=== PATIENT | male | born 1980 | race Caucasian/White ===

== ENCOUNTER 2019-08-29 07:44 | Outpatient (RCR) | payer OTHER, SELFPAY ==
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
== END 2019-09-19 09:51 | disposition home or self-care (01) ==
LOC: CHSPT 07:44
PROVIDERS: PCP Family Medicine
DX: M54.5 Low back pain (principal)
CPT/HCPCS: 97014; 97110; 97140; 97161; G0283

== ENCOUNTER 2019-09-27 11:11 | Emergency (ER) | payer OTHER, SELFPAY ==
[2019-09-27 11:15] VITALS: BP 137/78; PULSE 106; RESP 18; TEMP 36.9; O2SAT 97
--- NOTE | 2019-09-27 12:19 | ED.WOUNDLAC ---
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 Onset (ago): hour(s) Extremity Location: Left: lower leg ( 3Mm laceration to the lateral aspect of his left lower extremity) Place: home Patient tetanus UTD: Yes Context: accidental Associated symptoms: none Treatments prior to arrival: bandage Related Data Home Medications Medication Instructions Recorded Confirmed amitriptyline 25 mg PO HS 09/27/19 09/27/19 divalproex 2,000 mg PO BID 09/27/19 09/27/19 gabapentin 400 mg PO TID 09/27/19 09/27/19 lacosamide [Vimpat] 100 mg PO BID 09/27/19 09/27/19 lamotrigine 100 mg PO BID 09/27/19 09/27/19 meloxicam 7.5 mg PO DAILY 09/27/19 09/27/19 pravastatin 80 mg PO DAILY 09/27/19 09/27/19 Allergies Allergy/AdvReac Type Severity Reaction Status Date / Time No Known Allergies Allergy Verified 09/27/19 11:35 Review of Systems Review of Systems: All systems reviewed & are unremarkable except as noted in HPI and below PMFSH Past Medical History Medical History Hypercholesterolemia Seizure disorder Exam Const: General: no acute distress Orientation/consciousness: patient oriented x3 HENMT: Head: normal to inspection Eyes: Conjunctivae: conjunctivae normal Pupils: Equal, round and reactive pupils present Neck: Neck: normal visual inspection and no lymphadenopathy Chest: Chest palpation & inspection: normal inspection of the chest Resp: Effort & Inspection: normal respiratory effort Cardio: Rate: regular rate Rhythm: regular rhythm GI: GI Palp: Yes Soft to palpation Back/Spine/Pelvis: Back: no CVA tenderness Skin: General skin exam: normal color Rashes: no rashes Neuro: General: patient oriented x3 Extrem: Other: laceration 3cm gaping to his left lower extremity Psych: Mental Status: mental status grossly normal Course Course Emergency Course: patient informed of needing sutures for laceration in the area was prepped lidocaine local anesthetic was administered 5 sutures were placed patient did well with minimal bleeding and no current bleeding. Procedures Laceration Laceration 1: Date: 09/27/19 Time: 12:29 Site: lower extremity Side (If applicable): left Size (cm): 3 Description: linear Local Anesthetic: lidocaine 1% ====== Skin Level ====== ====== Subcutaneous Layer ====== Size: 4-0 Number of sutures: 5 Technique: simple, interrupted ====== Muscle Layer ====== ====== Tendon Layer ====== Critical Care Time Critical Care Time Critical Care Time: No Discharge Plan Discharge Clinical Impression: Laceration Patient Disposition: Home, Self-Care Condition: Stable Instructions: Antibiotic Form, Laceration (ED) Additional Instructions: Follow-up with primary care physician in 1 week for suture removal. Prescriptions: No Action gabapentin 400 mg capsule 400 mg PO TID RF: 0 meloxicam 7.5 mg tablet 7.5 mg PO DAILY RF: 0 pravastatin 80 mg tablet 80 mg PO DAILY RF: 0 amitriptyline 25 mg tablet 25 mg PO HS RF: 0 divalproex 500 mg tablet extended release 24 hr 2,000 mg PO BID RF: 0 lamotrigine 100 mg tablet 100 mg PO BID RF: 0 Vimpat 100 mg tablet 100 mg PO BID RF: 0 Interventions: Discharge Disposition Last Done: 09/27/19 12:30 Follow-up/Referrals: Tari Lane [Other] Time of Disposition: 12:32
== END 2019-09-27 12:36 | disposition home or self-care (01) ==
PROVIDERS: Emergency Provider Emergency Medicine
DX: S81.812A Laceration without foreign body, left lower leg, initial encounter (principal); W45.8XXA Other foreign body or object entering through skin, initial encounter
CPT/HCPCS: 12002; 99282

== ENCOUNTER 2020-10-13 08:49 | Outpatient (RCR) | payer OTHER, SELFPAY ==
--- NOTE | 2020-10-13 09:57 | PTOPEVAL ---
Thank you for referring Luis Voss to [facility] The patient is scheduled to be seen for therapy? __3__x/week for 12 visits. Please review, sign, date and return this plan of care [facility]. I agree with and certify that the following plan of care is medically necessary. Referring Physician Date Admitting Provider: Attending Provider: Judith Trinh, GRINDER GEAR Referring Provider: *PT Outpatient Evaluation Start: 10/13/20 09:02 Freq: Status: Active Protocol: Document 10/13/20 09:02 VIJAYA (Rec: 10/13/20 09:56 [facility] [id number]) Therapy Assessment Status Assessment Status Assessment Status Evaluation Outpatient Past Medical History Neurological History Hx Epilepsy Yes Hx Seizures Yes Musculoskeletal History Hx Other Musculoskeletal Disorders Yes: larry carpal tunnel, left ulnar and radial nerve surgery Evaluation Information Problem Diagnosis left calcaneus fx, scapular dyskinesis Onset 08/07/20 Subjective Information Pt. reports that he was Query Text:As Reported By Patient/ climbing down a ladder and Family slipped falling straight down. He reports he went to the doctor that evening and revealed heel fx. He states that he was placed in a boot and was on crutches initially. He has been off crutches for 4 weeks. He reports that he is still in a boot and was told he will have to wear the boot till December. 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 He states that he also suffers from chronic pain in the neck and described right shoulder blade. He states that pain is triggered with raising the arm and turning the head. He states that his goal is to walk normal and decrease his shoulder pain. 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
== END 2020-11-06 08:46 | disposition home or self-care (01) ==
LOC: CHSPT 08:49
PROVIDERS: Visit Provider Nurse Practitioner Family
DX: S92.045D Nondisplaced other fracture of tuberosity of left calcaneus, subsequent encounter for fracture with routine healing (principal); G25.89 Other specified extrapyramidal and movement disorders
CPT/HCPCS: 97014; 97110; 97112; 97161; G0283

== ENCOUNTER 2021-01-27 08:54 | Outpatient (RCR) | payer OTHER, SELFPAY ==
--- NOTE | 2021-01-27 09:56 | PTOPEVAL ---
Thank you for referring Luis Voss to [facility].? The patient is scheduled to be seen for therapy? ____x/week for ___ weeks. Please review, sign, date and return this plan of care [facility]. I agree with and certify that the following plan of care is medically necessary. Referring Physician Date Admitting Provider: Attending Provider: Judith Trinh, ENTRY LEVEL SOFTWARE ENGINEER Referring Provider: *PT Outpatient Evaluation Start: 01/27/21 09:02 Freq: Status: Active Protocol: Document 01/27/21 09:00 [facility] (Rec: 01/27/21 09:50 [facility] [id number]) Therapy Assessment Status Assessment Status Assessment Status Evaluation Outpatient Past Medical History Neurological History Hx Epilepsy Yes Hx Seizures Yes Musculoskeletal History Hx Other Musculoskeletal Disorders Yes: larry carpal tunnel, left ulnar and radial nerve surgery Evaluation Information Problem Diagnosis R shoulder SLAP repair and biceps tenodesis Onset 12/11/20 Additional Evaluation Detail quick dash = 72% functionally declined Subjective Information patient reports he injured his Query Text:As Reported By Patient/ R shoulder many years ago. he Family is unsure of an actual injury . he reports about 6-7 weeks ago he had a SLAP repair of the R shoulder (12/11/20). he reports he was in a sling for only 3 days, and is now able to lift 5lbs. he reports he has not been doing any home therapy, but has been stretching his shoulder. he reports he is now able to lift his R arm overhead which he was unable to do before. as well, he can now reach behind his back and head which were limited due to pain before surgery. he reports he still has discomfort/pain in the R shoulder with overhead lifting and behind head/back reaching . Prior Level of Function Comments Additional Prior Level of Function patient reports he does not Comments work. he reports he is wanting to return to pain free movement of the R shoulder, and well as performing light
--- NOTE | 2021-02-13 16:08 | PTOPEVAL ---
Thank you for referring Luis Voss to [facility].? The patient is scheduled to be seen for therapy? ____x/week for ___ weeks. Please review, sign, date and return this plan of care [facility]. I agree with and certify that the following plan of care is medically necessary. Referring Physician Date Admitting Provider: Attending Provider: Judith Trinh, BEAUTY OPERATOR APPRENTICE Referring Provider: *PT Outpatient Evaluation Start: 01/27/21 09:02 Freq: Status: Active Protocol: Document 02/13/21 07:30 [facility] (Rec: 02/13/21 08:27 [facility] [id number]) Therapy Assessment Status Assessment Status Assessment Status Progress Outpatient Past Medical History Neurological History Hx Epilepsy Yes Hx Seizures Yes Musculoskeletal History Hx Other Musculoskeletal Disorders Yes: larry carpal tunnel, left ulnar and radial nerve surgery Evaluation Information Problem Diagnosis R shoulder SLAP repair and biceps tenodesis Onset 12/11/20 Subjective Information patient reports he feels Good Query Text:As Reported By Patient/ this date. he reports Family minimal pain this date. he reports he has been compliant with his HEP at home. Pain Assessment Timing of Pain Assessment Timing of Pain Assessment Assessment Pain Scale Pain Scale Used Numeric (1 - 10) Self Report Pain Assessment Right Shoulder(s) Reported Pain Level 1 Pain Score Pain Score 1: Self Report Interventions Used Interventions Used By Clinicians Activity or ADL's,Electrical Stimulation,Exercise,Heat Upper Extremity Range of Motion Scapular/ Shoulder Range of Motion Right Shoulder Flexion - Active 165 Shoulder Medial Rotation - Active 65 Shoulder Lateral Rotation - Active 90 Upper Extremity Muscle Strength Testing Scapular/Shoulder Right Shoulder Flexion Strength 4 Good Shoulder Adduction Strength 4 Good Shoulder Medial Rotation Strength 5 Normal Shoulder Lateral Rotation Strength 4+ Good + General Exercise General Exercises Exercise Description -pulleys 5 minutes Query Text:Record Sets, Reps, -TB blue scap retraction x 30 Resistance, and Position -TB blue x 30 scap retraction -TB blue shoulder IR x 30 -TB blue shoulder ER x 30 with towel roll under arm -standing flexion and scaption x20 with 3lb bilat -bent over row 3lb x30 bilat -prone shoulder flexion 2# x 15 reeps x 2 sets
--- NOTE | 2021-02-18 08:23 | PCPTNOTE ---
Mr Voss has been seen for a total of 11 outpatient treatments since initial evaluation on 01/27/21. Patient rates his pain a 3/10 and is following 5# weight restriction in department per physicians protocol. Patient feels he has improved 75% since initial eval. Mr. Voss's treatment has consisted of: -pulleys 5 minutes -TB blue scap retraction x 30 -TB blue x 30 scap retraction -TB blue shoulder IR x 30 -TB blue shoulder ER x 30 -standing flexion and scaption x30 reps with 3lb bilat -bent over row 5lb x30 bilat -prone shoulder flexion 2# x 30 reeps. -prone right shoulder horizontal abduction x 30 reps with 2# -prone shoulder extension x 30 reps 2# -prone row 15 reps x2 stes with 2# -body blade 1 minute each x 2 flex/ext and IR/ER -supine scap punch with 5lb weight x20 -supine 5lb alphabet -TB wall walking blue 20 feet x 2 -TB wall wall climbs up and down x10 blue loop -tband red D@ flex and ext x20 each -ball on shelf 2.2# forward x 20 -ball on shelf 2.2# at scaption angle with elbow slightly bent x 20 -UBE x 4 min L3 Right shoulder AROM: Flexion 165 degrees Internal Rotation 65 degrees External Rotation 90 degrees MMT: Flexion 4+/5 Internal Rotation 5/5 External Rotation 4+/5 If you have any questions or concerns in regards to Arjun's treatment feel free to contact our office. Noa Eisenberg [employer]IGH [employer]CHO[employer] AUTO REPAIR TEACHER
--- NOTE | 2021-02-20 08:57 | PTOPEVAL ---
Thank you for referring Luis Voss to [facility].? The patient is scheduled to be seen for therapy? ____x/week for ___ weeks. Please review, sign, date and return this plan of care [facility]. I agree with and certify that the following plan of care is medically necessary. Referring Physician Date Admitting Provider: Attending Provider: Judith Trinh, DAM TENDER ASSISTANT Referring Provider: *PT Outpatient Evaluation Start: 01/27/21 09:02 Freq: Status: Active Protocol: Document 02/20/21 07:56 [facility] (Rec: 02/20/21 08:56 [facility] [id number]) Therapy Assessment Status Assessment Status Assessment Status Progress Outpatient Past Medical History Neurological History Hx Epilepsy Yes Hx Seizures Yes Musculoskeletal History Hx Other Musculoskeletal Disorders Yes: larry carpal tunnel, left ulnar and radial nerve surgery Evaluation Information Problem Diagnosis R shoulder SLAP tear and bicep tenodesis Onset 12/11/20 Subjective Information Patient states that he went to Query Text:As Reported By Patient/ the MD the past week and they Family were pleased with his range of motion and would like to progress his strengthening. He no longer has weight restrictions. Pain Assessment Timing of Pain Assessment Timing of Pain Assessment Assessment Pain Scale Pain Scale Used Numeric (1 - 10) Self Report Pain Assessment Right Shoulder(s) Reported Pain Level 1 Greatest Pain Intensity 4 Pain Score Pain Score 1: Self Report Interventions Used Interventions Used By Clinicians Activity or ADL's,Exercise Upper Extremity Muscle Strength Testing Scapular/Shoulder Right Shoulder Flexion Strength 5 Normal Shoulder Abduction Strength 5 Normal Shoulder Medial Rotation Strength 5 Normal Shoulder Lateral Rotation Strength 4+ Good + General Exercise General Exercises Exercise Description -pulleys 5 minutes Query Text:Record Sets, Reps, -TB blue scap retraction x 30 Resistance, and Position -TB blue x 30 scap retraction -TB blue shoulder IR x 30 -TB blue shoulder ER x 30 -standing flexion and scaption x25 with 3lb bilat -bent over row 5lb x30 bilat -prone shoulder flexion 2# x 15 reeps x 2 sets -prone right shoulder horizontal abduction x 15 reps x 2 sets
--- NOTE | 2021-04-07 11:11 | PTOPEVAL ---
Thank you for referring Luis Voss to [facility].? The patient is scheduled to be seen for therapy? ____x/week for ___ weeks. Please review, sign, date and return this plan of care [facility]. I agree with and certify that the following plan of care is medically necessary. Referring Physician Date Admitting Provider: Attending Provider: Judith Trinh, CLINICAL GENETICS LABORATORY CHIEF Referring Provider: *PT Outpatient Evaluation Start: 01/27/21 09:02 Freq: Status: Active Protocol: Document 04/07/21 07:30 [facility] (Rec: 04/07/21 11:10 [facility] [id number]) Therapy Assessment Status Assessment Status Assessment Status Discharge Outpatient Past Medical History Neurological History Hx Epilepsy Yes Hx Seizures Yes Musculoskeletal History Hx Other Musculoskeletal Disorders Yes: larry carpal tunnel, left ulnar and radial nerve surgery Evaluation Information Problem Diagnosis R shoulder SLAP tear and bicep tenodesis Onset 12/11/20 Additional Evaluation Detail quick dash = 22% Subjective Information patient reports he feels good Query Text:As Reported By Patient/ this date. he reports he has Family no pain in the R shoulder. he reports today is his last visit. he reports he is seeing his MD for DC from services tomorrow. Pain Assessment Timing of Pain Assessment Timing of Pain Assessment Assessment Self Report Self Report Pain Level 0 Pain Score Pain Score 0: Self Report Upper Extremity Range of Motion General Upper Extremity Range of Motion Gross Upper Extremity Range of Motion 165 arom bilateral shoulder Comments flex functional ER reach to the upper thoracic spine bilaterally functional IR reach to the lower thoracic spine bilaterally Upper Extremity Muscle Strength Testing Scapular/Shoulder Right Shoulder Flexion Strength 5 Normal Shoulder Abduction Strength 5 Normal Shoulder Medial Rotation Strength 5 Normal Shoulder Lateral Rotation Strength 4+ Good + Elbow/Forearm Right Elbow Flexion Strength 5 Normal Elbow Extension Strength 5 Normal General Exercise General Exercises Exercise Description TherEx Query Text:Record Sets, Reps, -UBE x 10 min L3 Resistance, and Position -TB black scap retraction x 30 -TB black ext x 30 -TB black shoulder IR x 30
== END 2021-04-07 16:21 | disposition home or self-care (01) ==
LOC: CHSPT 08:54
PROVIDERS: Visit Provider Nurse Practitioner Family
DX: S43.431A Superior glenoid labrum lesion of right shoulder, initial encounter (principal); Z48.89 Encounter for other specified surgical aftercare
CPT/HCPCS: 97014; 97110; 97140; 97161; 97530; G0283

== ENCOUNTER 2021-11-06 11:09 | Outpatient (CLI) | payer OTHER, SELFPAY ==
[2021-11-06 11:50] LABS: Post Vasectomy Sperm Presence None Seen (None Seen)
== END 2021-11-06 11:10 | disposition home or self-care (01) ==
LOC: CHSLAB 11:11
PROVIDERS: PCP Family Medicine; Visit Provider Family Medicine
DX: Z30.09 Encounter for other general counseling and advice on contraception (principal)
CPT/HCPCS: 88160; 89321

== ENCOUNTER 2023-04-11 20:28 | Emergency (ER) | payer OTHER, SELFPAY ==
--- NOTE | ~2023-04-11 | XR_ITS ---
EXAMINATION: XR chest 1V portable 04/11/2023 20:59 INDICATION: Cough and fever PROCEDURE: AP portable chest COMPARISON: 01/15/2014 FINDINGS: The lungs are clear. The cardiomediastinal silhouette is within normal limits. There are no pleural effusions. There is no pneumothorax suspected. IMPRESSION: 1: NO ACUTE CARDIOPULMONARY DISEASE. Reviewed, dictated and finalized at location A. NICAL DELIVERY MANAGER
[2023-04-11 20:30] VITALS: BP 103/71; PULSE 68; RESP 20; TEMP 36.9; O2SAT 95
[2023-04-11 21:09] LABS: Strep Group A RT-PCR NOT DETECTED (Negative)
--- NOTE | 2023-04-11 21:13 | ED.GENADULT ---
HPI - General Adult General Chief complaint: Upper Respiratory Infection Stated complaint: fever, cough, body aches History of Present Illness HPI narrative: Luis presented to the ED feeling ill for a day and a half. He started to feel weak and had some aches which progressed to diarrhea, a cough, and a fever up to 102. There is no CP or dyspnea. His has flu B. Related Data Home Medications Medication Instructions Recorded Confirmed amitriptyline 25 mg tablet 25 mg PO HS 09/27/19 09/27/19 divalproex 500 mg tablet,extended 2,000 mg PO BID 09/27/19 09/27/19 release 24 hr gabapentin 400 mg capsule 400 mg PO TID 09/27/19 09/27/19 lacosamide 100 mg tablet (Vimpat) 100 mg PO BID 09/27/19 09/27/19 lamotrigine 100 mg tablet 100 mg PO BID 09/27/19 09/27/19 meloxicam 7.5 mg tablet 7.5 mg PO DAILY 09/27/19 09/27/19 pravastatin 80 mg tablet 80 mg PO DAILY 09/27/19 09/27/19 Allergies Allergy/AdvReac Type Severity Reaction Status Date / Time No Known Allergies Allergy Verified 09/27/19 11:35 Review of Systems Review of Systems: All systems reviewed & are unremarkable except as noted in HPI and below ON LICENSE OF [facility] Past Medical History Medical History (Updated 04/12/23 @ 00:00 by Background Daemon) Hypercholesterolemia Seizure disorder Exam Const: General: cooperative, healthy appearing, comfortable, no acute distress, well developed, alert, awake and Physically active Orientation/consciousness: oriented to person, oriented to place and oriented to time HENMT: Head: normal to inspection, normocephalic and atraumatic Ears: hearing grossly normal bilaterally and external ears normal Face/Nose/Sinus: Normal external nose present Other: rhinorrhea present Eyes: General: appearance normal, both eyes and all related structures Periorbital: periorbital findings normal Sclera: sclerae normal Pupils: Equal, round and reactive pupils present Neck: Neck: normal visual inspection Chest: Chest palpation & inspection: normal inspection of the chest Resp: Effort & Inspection: normal respiratory effort, able to speak in complete sentences and no respiratory distress Auscultation: clear to auscultation bilaterally Cardio: Jugular venous distension: no JVD Rate: regular rate Rhythm: regular rhythm GI: Inspection: normal to inspection GI Palp: Yes Soft to palpation Auscultation: normal bowel sounds Skin: General skin exam: normal color and no rashes or lesions noted Neuro: General: oriented to person, oriented to place and oriented to time Cranial nerves: Yes Equal, round and reactive pupils present Extrem: General: normal to inspection Course Course Emergency Course: Ordered viral testing, labs and CXR. EXAMINATION: XR chest 1V portable 04/11/2023 20:59 INDICATION: Cough and fever PROCEDURE:? AP portable chest COMPARISON: 01/15/2014 FINDINGS: The lungs are clear.? The cardiomediastinal silhouette is within normal limits.? There are no pleural effusions.? There is no pneumothorax suspected.? IMPRESSION: 1:? NO ACUTE CARDIOPULMONARY DISEASE. +influenza B -CBC was largely unremarkable but CMP showed mild hyponatremia and and elevated creatinine (no baseline to compare but I suspect in an otherwise healthy male it would be lower) Ordered 1L of NS Vital Signs Vital signs: Vital Signs Temperature 98.4 F 04/11/23 20:30 Pulse Rate 68 04/11/23 20:30 Respiratory Rate 20 04/11/23 20:30 Blood Pressure 103/71 04/11/23 20:30 Pulse Oximetry 95 04/11/23 20:30 Oxygen Delivery Room Air 04/11/23 20:30 Temperature 98.3 F 04/11/23 22:46 Pulse Rate 78 04/11/23 22:46 Respiratory Rate 20 04/11/23 22:46 Blood Pressure 148/97 H 04/11/23 22:46 Pulse Oximetry 99 04/11/23 22:46 Oxygen Delivery Room Air 04/11/23 22:46 Medical Decision Making Vital Signs Vital Signs: Vital Signs Temperature 98.4 F 04/11/23 20:30 Pulse Rate 68 04/11/23 20:30 Respiratory Rate
[2023-04-11 21:19] LABS: SARS-CoV-2 RNA PCR Negative (Negative)
[2023-04-11 21:25] LABS: Influenza A QL RT-PCR Negative (Negative); Influenza B QL RT-PCR Positive (Negative); RSV RNA, RT-PCR Negative (Negative)
[2023-04-11 21:40] LABS: Basophils Absolute Auto 0.03 K/mm3 (0.00-0.10); Basophils Percent Auto 0.5 % (0.0-1.0); Eosinophils Absolute Auto 0.05 K/mm3 (0.02-0.50); Eosinophils Percent Auto 0.9 % (1.0-6.0); Hematocrit 45.1 % (40.0-54.0); Hemoglobin 14.7 g/dL (14.0-18.0); Immature Granulocyte Absolute 0.02 K/mm3 (0.00-0.00); Immature Granulocyte Percent A 0.4 % (0.0-0.0); Lymphocytes Absolute Auto 0.62 K/mm3 (1.10-4.50); Lymphocytes Percent Auto 10.9 % (18.0-42.0); Mean Corpuscular HGB Conc 32.6 g/dL (32.0-36.0); Mean Corpuscular Hemoglobin 31.4 pg (27.0-31.0); Mean Corpuscular Volume 96.4 fL (78.0-102.0); Mean Platelet Volume 9.9 fl (8.7-11.0); Monocytes Absolute Auto 0.39 K/mm3 (0.10-0.90); Monocytes Percent Auto 6.9 % (2.0-11.0); Neutrophils Absolute Auto 4.6 K/mm3 (1.7-7.2); Neutrophils Percent Auto 80.4 % (50.0-70.0); Platelet Count Result 172 K/mm3 (150-420); Red Blood Count 4.68 M/mm3 (4.70-6.10); Red Cell Distribution Width 14.6 % (11.6-14.4); White Blood Count 5.7 K/mm3 (4.8-10.8)
[2023-04-11] MEDS: OSELTAMIVIR PHOSPHATE 75 MG CAPSULE PO (21:50)
[2023-04-11 21:55] LABS: Alanine Aminotransferase 46 U/L (16-63); Albumin Level 4.2 g/dL (3.4-5.0); Alkaline Phosphatase 75 U/L (46-116); Anion Gap 8 mmol/L (8-16); Aspartate Amino Transferase 29 U/L (15-37); Bilirubin,Total 0.5 mg/dL (0.00-1.00); Blood Urea Nitrogen 13 mg/dL (7-18); Calcium 9.6 mg/dL (8.5-10.1); Carbon Dioxide 28 mmol/L (21-32); Chloride 97 mmol/L (98-108); Estimated CRCL calculation 47 ml/min; Estimated Glomerular Filt Rate 42; Glucose 102 mg/dL (70-99); Osmolality Calculated 276 mOsm/kg (285-295); Potassium 3.8 mmol/L (3.5-5.1); Sodium 133 mmol/L (136-145); Total Protein 7.1 g/dL (6.4-8.2)
[2023-04-11] MEDS: SODIUM CHLORIDE 0.9% IV 1,000 ML 999 ML IV CONT (22:12)
[2023-04-11 22:46] VITALS: BP 148/97; PULSE 78; RESP 20; TEMP 36.8; O2SAT 99
== END 2023-04-11 22:51 | disposition home or self-care (01) ==
PROVIDERS: Emergency Provider Family Medicine; PCP Family Medicine
DX: J10.1 Influenza due to other identified influenza virus with other respiratory manifestations (principal); N17.9 Acute kidney failure, unspecified; Z20.822 Contact with and (suspected) exposure to COVID-19
CPT/HCPCS: 36415; 71045; 80053; 85025; 87637; 87651; 96360; 99283; A9270; J7030

== ENCOUNTER 2023-07-08 09:20 | Emergency (ER) | payer OTHER, SELFPAY ==
--- NOTE | ~2023-07-08 | US_ITS ---
Testicular ultrasound with doppler. Indication: Right testicular pain and swelling. Technique: Real-time sonography the scrotum was performed. Color flow Doppler and Doppler spectral an alysis were performed. Findings: The testes are homogeneous in echotexture bilaterally. There is no evidence of an intrates ticular mass. The right testis measures 3.6 x 2.5 x 2.0 cm and the left 3.9 x 2.5 x 2.1 cm. There is color-flow seen to both testes. Arterial and venous spectral waveforms are seen in both testes. There is no sonographic evidence of torsion. 6 mm right epididymal head cyst or spermatocele present. Ther e is a 3 mm calcification adjacent to the inferior aspect of the epididymis on the right side, possib ly a small scrotal juliane. Impression: No acute reality evident. 6 mm right epidural head cyst or spermatocele. Probable 3 mm right scrotal juliane.. Reviewed, dictated and finalized at [facility]. Impression: No acute reality evident. 6 mm right epidural head cyst or spermatocele. Probable 3 mm right scrotal juliane..
[2023-07-08 09:20] VITALS: BP 120/81; PULSE 65; RESP 16; TEMP 36.6; O2SAT 100
[2023-07-08 09:46] LABS: Appearance Urine Clear (Clear); Bilirubin Urine Negative (Negative); Blood Urine Negative (Negative); Color Urine Yellow (Yellow); Glucose Urine UA Negative (Negative); Ketones Urine Negative (Negative); Leukocyte Esterase Ur Negative LEU/UL (Negative); Nitrate Urine Negative (Negative); Protein Urine Negative (Negative); Specific Grav Ur 1.025 (1.010-1.020); Urobilinogen Urine 0.2 mg/dL (0.2-1.0)
[2023-07-08 09:50] LABS: Add Urine Microscopic? NO
[2023-07-08] MEDS: IBUPROFEN 400 MG TABLET 800 MG PO (11:19)
[2023-07-08] MEDS: ACETAMINOPHEN 500 MG TABLET 1000 MG PO (11:19)
[2023-07-08] MEDS: CIPROFLOXACIN 500 MG TAB PO (11:19)
[2023-07-08 11:22] VITALS: BP 123/79; PULSE 79; RESP 20; TEMP 36.9; O2SAT 98
--- NOTE | 2023-07-08 11:29 | ED.GENADULT ---
HPI - General Adult General Chief complaint: Urogenital-Male Stated complaint: right testicular pain Time Seen by Provider: 07/08/23 09:36 History of Present Illness HPI narrative: The patient is a 43-year-old male with history of seizure disorder, hyperlipidemia, fibromyalgia, bipolar affective disorder, prior vasectomy, who since yesterday evening, has had pain in the right testicle. No trauma to that area. No lesions on the penis or drainage from the meatus. No significant swelling of the testicle today, no symptoms on the left side. Has had mild increase in urinary frequency but no urinary urgency dysuria or hematuria. No fevers or chills. No abdominal pain. No nausea or vomiting. No other complaints. Related Data Home Medications Medication Instructions Recorded Confirmed amitriptyline 25 mg tablet 25 mg PO HS 09/27/19 09/27/19 divalproex 500 mg tablet,extended 2,000 mg PO BID 09/27/19 09/27/19 release 24 hr gabapentin 400 mg capsule 400 mg PO TID 09/27/19 09/27/19 lacosamide 100 mg tablet (Vimpat) 100 mg PO BID 09/27/19 09/27/19 lamotrigine 100 mg tablet 100 mg PO BID 09/27/19 09/27/19 meloxicam 7.5 mg tablet 7.5 mg PO DAILY 09/27/19 09/27/19 pravastatin 80 mg tablet 80 mg PO DAILY 09/27/19 09/27/19 Allergies Allergy/AdvReac Type Severity Reaction Status Date / Time No Known Allergies Allergy Verified 09/27/19 11:35 Review of Systems Review of Systems: All systems reviewed & are unremarkable except as noted in HPI and below Constitutional: Constitutional: Denies chills, Denies excessive sweating, Denies fatigue, Denies fever(s), Denies headache(s) and Denies weakness Eyes: Eyes: Denies change in vision and Denies photophobia ENT: Denies dysphagia, Denies dizziness, Denies headache(s), Denies lip swelling, Denies nasal congestion, Denies sore throat and Denies tongue swelling Cardiovascular: Cardiovascular: Denies chest pain, Denies syncope, Denies rapid heart rate and Denies dyspnea Respiratory: Respiratory: Denies cough, Denies dyspnea and Denies wheezing Gastrointestinal: Gastrointestinal: Denies abdominal pain, Denies constipation, Denies dysphagia, Denies diarrhea, Denies nausea and Denies vomiting Genitourinary: Genitourinary: Denies hematuria, Denies dysuria, Reports urinary frequency (mild) and Denies urinary urgency Comments: right testicular pain without swelling. Musculoskeletal: Musculoskeletal: Denies back pain, Denies myalgias, Denies arthralgias, Denies joint swelling and Denies numbness Integumentary/Breasts: Skin/Breast: Denies pruritus, Denies erythema and Denies rash Neurologic: Denies confusion, Denies dizziness, Denies syncope, Denies headache(s), Denies focal weakness, Denies numbness and Denies weakness Psychiatric: Psychiatric: Denies anxiety and Denies confusion Endocrine: Endocrine: Denies excessive sweating and Denies fatigue Hematologic/Lymphatic: Hematologic/Lymphatic: Denies easy bleeding and Denies easy bruising Allergic/Immunologic: Allergic/Immunologic: Denies lip swelling, Denies tongue swelling and Denies wheezing PMFSH Past Medical History Medical History (Updated 07/08/23 @ 11:36 by Vj Rajput MD) Hypercholesterolemia Seizure disorder Exam Const: General: healthy appearing, no acute distress, alert and well nourished Nutritional Appearance: well nourished Orientation/consciousness: patient oriented x3 Limitations: no limitations HENMT: Head: normal to inspection Ears: external ears normal Face/Nose/Sinus: normal facial exam Face and sinus: normal facial exam Mouth: Yes moist mucous membranes Throat: posterior oropharynx normal Eyes: Conjunctivae: conjunctivae normal Pupils: Equal, round and reactive pupils present EOM: EOMs intact bilaterally Neck: Neck: normal visual inspection and no meningeal signs Chest: Chest palpation & inspection: normal inspection of the chest and no tenderness Resp: Effort & Inspection: normal resp
[2023-07-08 11:56] VITALS: BP 123/79; PULSE 79; RESP 20; TEMP 36.9; O2SAT 98
== END 2023-07-08 11:56 | disposition home or self-care (01) ==
PROVIDERS: Emergency Provider Emergency Medicine; PCP Family Medicine
DX: N45.1 Epididymitis (principal); E78.5 Hyperlipidemia, unspecified; F31.9 Bipolar disorder, unspecified; G40.909 Epilepsy, unspecified, not intractable, without status epilepticus; E78.00 Pure hypercholesterolemia, unspecified
CPT/HCPCS: 76870; 81003; 93976; 99284; A9270

== ENCOUNTER 2024-07-25 08:04 | Outpatient (RCR) | payer OTHER, SELFPAY ==
--- NOTE | 2024-07-25 08:57 | OPREHPOC ---
Outpatient Therapy Plan of Care This is a Multidisciplinary Plan of Care that may contain components documented by all disciplines (PT, OT, and ST.) PT Problem 1 PT Problem #1 Knowledge Deficit PT Goal 1 Goal / Goal Update independent and compliant with HEP Target Visit 6 PT Problem 2 PT Problem #2 Pain PT Goal 1 Goal / Goal Update decrease pain at worst to 4/10 or less in the R shoulder Target Visit 12 PT Problem 3 PT Problem #3 Impaired Range of Motion PT Goal 1 Goal / Goal Update 145 degrees or better active R shoulder flex 135 degrees or better active R shoulder abd 85 degrees or better active R shoulder ER 75 degrees or better active R shoulder IR Target Visit 12 PT Problem 4 PT Problem #4 Impaired Strength PT Goal 1 Goal / Goal Update 4+/5 or better overall R shoulder strength 5/5 R elbow extension Target Visit 12 PT Problem 5 PT Problem #5 Impaired Functional Mobility PT Goal 1 Goal / Goal Update quick dash to display 25% or less functional deficits patient to lift 40lbs from floor to waist without increased pain patient to carry 40lbs around 400ft without increased pain patient to lift 10lbs overhead x10 repetitions with the R UE Target Visit 12
--- NOTE | 2024-07-25 08:58 | PTOPEVAL1 ---
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 he reports he has increased pain in the R shoulder with reaching overhead, doing dishes, lifting heavy objects (40lbs). he reports he struggles to carry a ladder or bundles of eloise material. he reports he has not yet had an MRI of the R shoulder since his pain began. he does have a history of R shoulder surgery (biceps tear, SLAP tear, DCE) back in 2019. he recovered fully after rehab from that surgery. Reported Pain Level Pain Score 5: Self Report Assessment PT Clinical Summary mr. galvin is a 44 yo man who presents to skilled PT services for evaluation and treatment of R shoulder pain. he has a history of labral tear and biceps tear of the R shoulder several years ago. he now presents with a angelica sign and other signs and symptoms that indicate a tear of the biceps and labrum. he would benefit from continued skilled PT to improve his rom, strength, and functional use of the R UE to return to his prior level functional activity performance/ quality of life. patient would benefit from having an MRI of the R shoulder to determine the extent of soft tissue damage. Plan of Care Interventions Electrical Stimulation,Hot Pack/Cold Pack,Manual Therapy,Neuro Re-education,Patient/Caregiver Education,Therapeutic Activities,Therapeutic Exercise PT Services Indicated Yes Treatment Frequency and 3x weekly for 12 visits Duration These treatments will address the objective and functional deficits as defined above. The patient will be advanced safely and appropriately in order for the patient to progress towards his/her prior level of function. Additional exercises will be introduced and as well as a comprehensive home exercise program upon discharge, if needed, to ensure carryover of functional gains achieved in the clinic. This treatment plan has been reviewed and agreement upon by the patient.
--- NOTE | 2024-08-01 08:11 | PCPTNOTE ---
Cancelled session. Father in law .
--- NOTE | 2024-08-17 12:27 | OPREHPOC ---
Outpatient Therapy Plan of Care This is a Multidisciplinary Plan of Care that may contain components documented by all disciplines (PT, OT, and ST.) PT Problem 1 PT Problem #1 Knowledge Deficit PT Goal 1 Goal / Goal Update independent and compliant with HEP Target Visit 6 Progress Met PT Problem 2 PT Problem #2 Pain PT Goal 1 Goal / Goal Update decrease pain at worst to 4/10 or less in the R shoulder Target Visit 12 Progress Not Met PT Problem 3 PT Problem #3 Impaired Range of Motion PT Goal 1 Goal / Goal Update 145 degrees or better active R shoulder flex 135 degrees or better active R shoulder abd 85 degrees or better active R shoulder ER 75 degrees or better active R shoulder IR Target Visit 12 Progress Not Met PT Problem 4 PT Problem #4 Impaired Strength PT Goal 1 Goal / Goal Update 4+/5 or better overall R shoulder strength 5/5 R elbow extension Target Visit 12 Progress Not Met PT Problem 5 PT Problem #5 Impaired Functional Mobility PT Goal 1 Goal / Goal Update quick dash to display 25% or less functional deficits patient to lift 40lbs from floor to waist without increased pain patient to carry 40lbs around 400ft without increased pain patient to lift 10lbs overhead x10 repetitions with the R UE Target Visit 12 Progress Not Met
--- NOTE | 2024-08-17 12:27 | PTOPPROG ---
Assessment and note entered by Rhonda Srinivasan, PT Evaluation Information Assessment Status Progress ICD-10 Condition Codes (PT) Pain in right shoulder M25.511 Subjective Information Luis reports his shoulder pain is around a 3/10 today and continues to be sharp in nature. Overall he feels like his shoulder is the same as when he started PT. He was scheduled to get an MRI on the shoulder on 08/14/24 but it was cancelled because they want to wait until he finishes physical therapy. Luis reports pain still occurs when getting dressed and washing his hair and that his pain significantly impairs his ability to perform these tasks. Assessment PT Clinical Summary Mr. Voss has attended 10 total skilled PT visits addressing R shoulder pain. Since beginning physical therapy his R shoulder strength and AROM are unchanged and his reported Quick DASH score is also unchanged. He continues to experience pain at rest and with activities such as getting dressed and washing his hair. He will benefit from continued skilled PT intervention for the remainder of his POC to reduce pain and, following discharge from PT, would benefit from further imaging of the R shoulder to investigate pathologies. Plan of Care Interventions Electrical Stimulation,Hot Pack/Cold Pack,Manual Therapy,Neuro Re-education,Patient/Caregiver Education,Therapeutic Activities,Therapeutic Exercise PT Services Indicated No Treatment Frequency and Continue per original POC Duration These treatments will address the objective and functional deficits as defined above. The patient will be advanced safely and appropriately in order for the patient to progress towards his/her prior level of function. Additional exercises will be introduced and as well as a comprehensive home exercise program upon discharge, if needed, to ensure carryover of functional gains achieved in the clinic. This treatment plan has been reviewed and agreement upon by the patient.
--- NOTE | 2024-08-23 08:10 | OPREHPOC ---
Outpatient Therapy Plan of Care This is a Multidisciplinary Plan of Care that may contain components documented by all disciplines (PT, OT, and ST.) PT Problem 1 PT Problem #1 Knowledge Deficit PT Goal 1 Goal / Goal Update independent and compliant with HEP Target Visit 6 Progress Met PT Problem 2 PT Problem #2 Pain PT Goal 1 Goal / Goal Update decrease pain at worst to 4/10 or less in the R shoulder -not met Target Visit 12 Progress Not Met PT Problem 3 PT Problem #3 Impaired Range of Motion PT Goal 1 Goal / Goal Update 145 degrees or better active R shoulder flex -not met 135 degrees or better active R shoulder abd -not met 85 degrees or better active R shoulder ER -not met 75 degrees or better active R shoulder IR -not met Target Visit 12 Progress Not Met PT Problem 4 PT Problem #4 Impaired Strength PT Goal 1 Goal / Goal Update 4+/5 or better overall R shoulder strength -not met 5/5 R elbow extension -met Target Visit 12 Progress Not Met PT Problem 5 PT Problem #5 Impaired Functional Mobility PT Goal 1 Goal / Goal Update quick dash to display 25% or less functional deficits -not met patient to lift 40lbs from floor to waist without increased pain. -not assessed patient to carry 40lbs around 400ft without increased pain -not assessed patient to lift 10lbs overhead x10 repetitions with the R UE -not met Target Visit 12 Progress Not Met
--- NOTE | 2024-08-23 08:10 | PTOPDC ---
Assessment and note entered by Ginny Kern, PT Evaluation Information Assessment Status Evaluation ICD-10 Condition Codes (PT) Pain in right shoulder M25.511 Subjective Information Luis reports his right shoulder pain is unchanged overall. He will be having a MRI after her completes his PT and he thinks he will need shoulder surgery. He has difficulty and increased pain with reaching overhead, to the side, and behind his back. 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 He will be following up with his physician regarding ongoing limitations and pain. Reported Pain Level Pain Score 3: Self Report Assessment PT Clinical Summary Arjun Voss has completed 12 skilled PT visits for right shoulder pain. He is reporting no overall change in his pain, symptoms, or function since initiating PT. He continues to have pain and difficulty with reaching overhead, to the side , and behind the back. 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 He continues to have objective deficits in right shoulder AROM, right shoulder strength, and positive special tests consistent with rotator cuff pathology, bicep tendonitis, and impingement. He has met one goal for independence in a home exercise program however, remainder of goals were not met. He is being discharged from skilled PT and was referred back to his physician. Plan of Care PT Services Indicated No
--- NOTE | 2024-08-23 08:11 | PTOPDC ---
Assessment and note entered by Ginny Kern, PT Evaluation Information Assessment Status Discharge ICD-10 Condition Codes (PT) Pain in right shoulder M25.511 Subjective Information Luis reports his right shoulder pain is unchanged overall. He will be having a MRI after her completes his PT and he thinks he will need shoulder surgery. He has difficulty and increased pain with reaching overhead, to the side, and behind his back. 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 He will be following up with his physician regarding ongoing limitations and pain. Reported Pain Level Pain Score 3: Self Report Assessment PT Clinical Summary Arjun Voss has completed 12 skilled PT visits for right shoulder pain. He is reporting no overall change in his pain, symptoms, or function since initiating PT. He continues to have pain and difficulty with reaching overhead, to the side , and behind the back. 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 He continues to have objective deficits in right shoulder AROM, right shoulder strength, and positive special tests consistent with rotator cuff pathology, bicep tendonitis, and impingement. He has met one goal for independence in a home exercise program however, remainder of goals were not met. He is being discharged from skilled PT and was referred back to his physician. Plan of Care PT Services Indicated No
== END 2024-08-23 20:00 | disposition home or self-care (01) ==
LOC: CHSPT 08:04
PROVIDERS: Visit Provider Nurse Practitioner Family
DX: M75.111 Incomplete rotator cuff tear or rupture of right shoulder, not specified as traumatic (principal); S43.431A Superior glenoid labrum lesion of right shoulder, initial encounter; S46.211S Strain of muscle, fascia and tendon of other parts of biceps, right arm, sequela
CPT/HCPCS: 97014; 97110; 97112; 97161; 97750; G0283

== ENCOUNTER 2024-08-30 08:51 | Emergency (ER) | payer OTHER, SELFPAY ==
--- OUTSIDE RECORDS SUMMARY | 2024-08-30 08:55 | XMS_ITS | Encounter Summary ---
Author Organization [facility] Address [address] [place] [address] Care Team Providers Care Exchange Trouble Shooter Name Role Phone Jm Lane MD Primary Care Provider Tari Lane Primary Care Provider [phone] MD Primary Care Provider [phone] Encounter Details Date Type Department Care Team (Late st Contact Info) Description 10/27/2020 Telephone [facility] [address] [place] [id number] Cuco Lui MD [address] [address] Social History Tobacco Use Types Packs/Day Years Used Date Smoking Tobacco: Every Day Cigars Smokeless Tobacco: Never Comments:Provider to address one cigar a day Alcohol Use Standard Drinks/Week Comments No 0 (1 standard drink = 0.6 oz pur e alcohol) AUDIT-C Answer Date Recorded Frequency of Alcohol Consumption Never 12/04/2018 Average Number of Drinks Not on file 019 Frequency of Binge Drinking Not on file 11/16 PHQ-2 Answer Date Recorded PHQ-2 Score - If the patient scores above 3, please move on to questions 3-9 2 10/27/2020 Sex and Gender Information Value Date Recorded Sex Assigned at Male 05/21/2024 11:24 AM [employer] Legal Sex Male 7:09 PM CDT Gender Identity Not on file Sexual Orientation Not on file COVID-19 Exposure Response Date Recorded In the last month, have you been in contact with someone who was confirmed or suspected to have Coronavirus / COVID-19? No / Unsure 10/29/2020 12:55 PM CDT documented as of this encounter Plan of Treatment Not on file documented as of this encounter Visit Diagnoses Diagnosis Seizure (CMS/HCC HHS/HCC) Other convulsions documented in this encounter Additional Health Concerns Infection Onset Date Last Indicated Resolved Time COVID-19 Rule Out 12/08/2020 12/08/2020 12/08/2020 7:17 PM CDT COVID-19 Rule Out 09/25/2021 09/25/2021 09/25/2021 7:16 PM CDT Assessment Noted Time PHQ-9 Depression Total Score: 2 10/28/19 21 1:22 PM CDT documented as of this encounter Care Teams Exchange Trouble Shooter Relationship Specialty Start Date End Date Jm Lane MD [address] [place] [address] PCP - General FAMILY PRACTICE 04/24/18 04/01/[address] FNP [address] [place] [address] PCP - General Nurse Practitioner Primary Care 04/02/21 11/29/[address] MD [address] [place] [address] PCP - General FAMILY PRACTICE 11/30/23 documented as of this encounter
--- OUTSIDE RECORDS SUMMARY | 2024-08-30 08:55 | XMS_ITS | Data Portability ---
Author Organization [facility], [address] [facility] ([place]) Address [address] [place] [address] Care Team Providers Care Supervisor Steffen House Name Role Phone ELLIS LANDRY Primary Care Provider Assessment Encounter Date Assessment Date Assessment LastModified by Organization Details LastModified Time 12/12/2023 12/12/2023 IMPRESSION: 1. He has not had a seizure in a long time. He used to see Dr. Tate and Dr. Pepper. He is currently taking lamotrigine 125 mg twice a day and lacosamide 100 mg twice a day. 2. He wants to change back to the cyclobenzaprine from tizanidine. PLAN: 1. I refilled all of his seizure meds. 2. I canceled his tizanidine and sent a prescription for cyclobenzaprine. 3. He needs to follow up with Psychiatry, etc. in regard to his lithium and other medicines. 4. He has been event free for over a year. I am not sure he needs to be on two seizure medicines. I will see him back for his repeat Botox injection in 3 months as per our usual routine. alexia burr Not available 12/12/2023 17:10:23 03/19/2024 03/19/2024 We will see patient back in three months. He tells me he is good with his seizure medicines. He will call if any issues. alexia burr Not available 03/19/2024 12:48:16 06/18/2024 06/18/2024 We will have him return to see us at an appropriate interval. gaf thomas Not available 06/19/2024 10:49:08 Plan of Treatment Reminders Order Date Submit Date Provider Last Modified By Organization Details Last Modified Time Details Appointments None recorded. Lab None recorded. Referral None recorded. Procedures None recorded. Surgeries None recorded. Imaging None recorded. Medication Orders Botox 100 unit injection 2024 025 [email or web address] [facility] #[id number], [address] [place], [address], 5 11:58:28 Botox 100 unit injection 2023 024 [email or web address] [facility] #[id number], [address] [place], [address], 4 10:42:13 Botox 100 unit injection 2023 024 [email or web address] [facility] #[id number], [address] [place], [address], 4 12:02:48 Botox 100 unit injection 2023 024 [email or web address] 9 Not available 16:35:13 Patient TargetsNo targets recorded. Patient InstructionsNo instructions recorded. Reason for Referral None Reported. Results Created Date Observation Date Name Description Value Unit Range Abnormal Flag Note LastModifiedBy Organization Detail LastModifiedTime Result Notes None recorded. 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 Procedures Surgical History Date Name Laterality Status Provider Name and Address Organization Details Recorded Time 06/19/19 25 SC Botox Procedure completed Mikaela Parish [facility] 06/19/2024 10:48:20 03/19/20 24 SC Botox Procedure completed Shruthi Shabbir [facility] 03/19/2024 12:47:54 12/12/19 24 SC Botox Procedure completed Shruthi Aronphyllisjailene [facility] 12/12/2023 17:09:41 09/05/19 24 SC Botox Procedure completed Marleny Pro [facility] 09/05/2023 15:13:22 Imaging Results None recorded. Procedure Notes None recorded. Medical Equipment None Reported. Allergies No known drug allergies Medications Name Sig Start Date Stop Date Status Note LastModified by Organization Details LastModified Time Prescriptio n - Prior Authorizati on Request 08/31 completed Not Available Not Available Not Available cyclobenzap rine 10 mg tablet 1/2 TO 1 TABLET TWICE A DAY NEEDED active Not Available Not Available No t Available atorvastati n 40 mg tablet TAKE 1 TABLET BY MOUTH EVERYDAY AT BEDTIME active Not Available Not Available No t Available tizanidine 2 mg tablet TAKE 1 TABLET BY MOUTH EVERY 6 TO 8 HOURS NEEDED. MAXIMUM 3 DOSES IN 24 HOURS 12/11 completed Not Available Not Available Not Available trazodone 50 mg tablet TAKE 1 TO 1 & 1/2 TABLETS BY MOUTH AT NIGHT FOR SLEEP active Not Available Not Available No t Available famotidine 40 mg tablet TAKE 1 TABLET BY MOUTH TWICE A DAY active Not Available Not Available No t Available gabapentin 400 mg capsule TAKE 1 CAPSULE BY MOUTH THREE TIMES A DAY active Not Available Not Available No t Available sertraline 100 mg tablet TAKE 1 TABLET DAILY active Not Available Not Available No t Available lithium carbonate ER 300 mg tablet,exte nded release Take 1 tablet every day by oral route at bedtime. active Not Available Not Available No t Available ciprofloxac in 500 mg tablet TAKE 1 TABLET BY MOUTH EVERY 12 HOURS FOR 10 DAYS 12/11 completed Not Available Not Available Not Available peg-electro lyte solution 420 gram oral solution TAKE DIRECTED BY DR. CAGE'S OFFICE 03/19 completed Not Available Not Available Not Available lithium carbonate ER 450 mg tablet,exte nded release TAKE 2 TABLETS BY MOUTH AT BEDTIME 12/11 completed Not Available Not Available Not Available lamotrigine 25 mg tablet TAKE 1 TABLET BY MOUTH TWICE A DAY active Not Available Not Available No t Available levothyroxi ne 100 mcg tablet TAKE 1 TABLET BY MOUTH EVERY DAY active Not Available Not Available No t Available propranolol 10 mg tablet TAKE 1 TABLET BY MOUTH TWICE A DAY 12/11 completed Not Available Not Available Not Available amitriptyli ne 25 mg tablet TAKE 1 TABLET BY MOUTH EVERYDAY AT BEDTIME 12/11 completed Not Available Not Available Not Available trazodone 100 mg tablet TAKE 1 TABLET BY MOUTH EVERYDAY AT BEDTIME 12/11 completed Not Available Not Available Not Available oseltamivir 75 mg capsule TAKE 1 CAPSULE BY MOUTH EVERY 12 HOURS FOR 5 DAYS 12/11 completed Not Available Not Available Not Available sertraline 50 mg tablet TAKE 1 TABLET BY MOUTH EVERY DAY 03/19 completed Not Available Not Available Not Available lamotrigine 100 mg tablet TAKE 1 TABLET BY MOUTH TWICE A DAY active Not Available Not Available No t Available naproxen 500 mg tablet TAKE 1 TABLET BY MOUTH TWICE A DAY FOR 10 DAYS 03/19 completed Not Available Not Available Not Available amoxicillin 875 mg-potassiu m clavulanate 125 mg tablet TAKE 1 TABLET BY MOUTH TWICE A DAY 12/11 completed Not Available Not Available Not Available Botox 100 unit injection Take 155 units every 3 months by injection route as needed. 2024 active Not Available Not Available Not Avai lable lacosamide 100 mg tablet TAKE 1 TABLET BY MOUTH TWICE A DAY active Not Available Not Available No t Available lurasidone 20 mg tablet TAKE 1 20MG TABLET DAILY WITH DINNER (>350 CALORIES) 03/19 completed Not Available Not Available Not Available Vitals Date Recorded Body height Body mass index (BMI) Body weight Heart rate Oxygen saturation Oxygen saturation in Arterial blood by Pulse oximetry Systolic blood pressure Diastolic blood pressure Provider Name and Address Organization Details Last Updated DateTime 4 173.99 cm 22.7 kg/m2 28223.8 8 g 89 /min 98 % 98 % 124 mm[Hg] 70 mm[Hg] Caro [facility] 4 12:59:06 Date Recorded Body height Body mass index (BMI) Body weight Heart rate Oxygen saturation Oxygen saturation in Arterial blood by Pulse oximetry Systolic blood pressure Diastolic blood pressure Provider Name and Address Organization Details Last Updated DateTime 4 173.99 cm 23.1 kg/m2 67259.9 4 g 108 /min 98 % 98 % 122 mm[Hg] 80 mm[Hg] Caro [facility] 4 10:02:02 Date Recorded Body height Body mass index (BMI) Body weight Heart rate Oxygen saturation Oxygen saturation in Arterial blood by Pulse oximetry Systolic blood pressure Diastolic blood pressure Provider Name and Address Organization Details Last Updated DateTime 5 173.99 cm 24.2 kg/m2 19265.0 9 g 82 /min 98 % 98 % 118 mm[Hg] 72 mm[Hg] Raquel Celaya [facility] 5 10:05:57 Social History None recorded. Functional Status None recorded. Mental Status None recorded. Family History Nothing Reported. Medical History No medical history recorded. Past Encounters Encounter ID Performer Location Encounter Start Date Encounter Closed Date Diagnosis/Indication Diagnosis SNOMED-CT Code Diagnosis ICD10 Code Diagnosis Note [id number] MD Michaela Lombardi [facility] ([place]) [address] [place] [address] 09/05/2023 14:32:46 09/05/2023 18:17:57 Migraine 83077220 G43.967 [id number] MD Michaela Lombardi [facility] [place]) [address] [place] [id number] 12/12/2023 12:50:48 12/12/2023 14:25:20 Chronic migraine without aura, non-refractory 8679379045 35993 G43.709 Seizure disorder 7887377 02 G40.909 [id number] MD Michaela Lombardi [facility] [place]) [address] [place] [address] 03/19/2024 09:48:12 03/19/2024 11:21:57 Chronic intractable migraine without aura 6240755128 95179 G43.719 [id number] Rhys Lin MD [address] [facility] ([place]) [address] [place] [address] 06/18/2024 09:58:13 06/18/2024 17:31:49 Chronic intractable migraine without aura 1321432959 41629 G43.719 Health Concerns Section Related Observation LastModified by Organization Detai ls LastModified Time None Recorded Concern Status LastModified by Organization Details LastModified Time None Recorded Advance Directives Directive None Recorded Payers Insurance Date Sequence Insurance Name Policy Number Policy Corral Covered Member ID Corral Member ID Guarantor Name 06/17/2024 2 [place] [employer] [place] Luis Voss [id number] Luis Voss 06/17/2024 1 [employer] [facility] [place] [facility] [place] [facility] ON OR AFTER 03/18/2020 (MEDICAID REPLACEMENT - HMO) Luis Voss [id number] Luis M Bipin Notes Date Note Type Note Provider Name and Address Organization Details Recorded Time 12/12/2023 text/html CHIEF COMPLAINT:Migrai jak and seizure disorder. HISTORY OF PRESENT ILLNESS:Mr. Voss returns today for his Botox injections. He did well with his last injection.alexia Lin MD [address] [place] [address], [phone], [facility] 12/14/2023 14:53:04 03/19/2024 text/html Mr. Voss returns to clinic today. He is doing well. He has not had any seizures. He is here for his Botox injection. He did well last time.alexia Lin MD [address] [place] [address], [phone], [facility] 03/20/2024 10:42:06 06/18/2024 text/html CHIEF COMPLAINT:Chroni c migraines. HPI:Luis Voss returns to clinic today. He is doing well. Botox helps quite a bit. Reduces his headache frequency by about 50% or more. He has not had any seizures. He is still taking seizure medicine.gaf Rhys Lin MD [address] [place] [address], [phone], [facility] 06/19/2024 12:00:18
--- OUTSIDE RECORDS SUMMARY | 2024-08-30 08:55 | XMS_ITS | Clinical Summary ---
Author Organization [facility] Address [address] [place] [address] Care Team Providers Care Talent Analyst Name Role Phone Jm Lane MD Primary Care Provider [phone] Source Comments [facility],non-owned Affiliates and Associated Physician Practices is amultiple site organization consisting of ambulatory clinics and hospital sitesin [place], [place], [place] and [place]. This disclosure is being madepursuant to the Care Everywhere program and may not contain all information available regarding this patient. Last updated 18.[facility] Allergies No known active allergies Medications * Be aware that medications may not be up to date on this document. Alwaysverify current medications with the patient. IBUPROFEN PO 200 mg as needed 05/26/2018 Active aspirin (ASPIRIN) 81 MG chew tablet Take 1 tablet by mouth once daily 11/17/2012 Active divalproex ER 24hr (DEPAKOTE ER) 500 MG tablet Take 1,000 mg by mouth 2 times daily 03/05/2019 Active gabapentin (NEURONTIN) 400 MG capsule Take 1 capsule by mouth 3 times daily 09/06/2017 Active lacosamide (VIMPAT) 100 MG tablet Take 100 mg by mouth 2 times daily 03/05/2019 Active lamoTRIgine (LAMICTAL) 100 MG tablet Take 100 mg by mouth 2 times daily 03/05/2019 Active amitriptyline (ELAVIL) 25 MG tablet Take 25 mg by mouth once daily 03/05/2019 Active sertraline (ZOLOFT) 50 MG tablet Take 50 mg by mouth once daily 03/31/2018 Active traZODone (DESYREL) 100 MG tablet Take 1 tablet by mouth once daily 10/05/2017 Active pravastatin (PRAVACHOL) 80 MG tablet Take 80 mg by mouth once daily 09/06/2017 Active lithium carbonate (ESKALITH) 150 MG capsule Take 150 mg by mouth once daily 10/05/2017 Active meloxicam (MOBIC) 15 MG tablet Take 1 tablet by mouth once daily 08/23/2017 Active Cyclobenzaprine HCl 7.5 MG Take 1 tablet by mouth 3 times daily as needed Active Active Problems Problem Noted Date Diagnosed Date 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 9 Scar 03/29/2019 Family History Medical History Relation Name Comments Asthma Neg Hx CVA Neg Hx Cancer - Breast Neg Hx Cancer - Other Neg Hx Cancer - Skin, Melanoma Neg Hx Cancer - Skin, Non Melanoma Neg Hx Eczema Neg Hx Hemophilia Neg Hx Psoriasis Neg Hx Social History Tobacco Use Types Packs/Day Years Used Date Smoking Tobacco: Every Day Cigarettes Cigars Smokeless Tobacco: Never Sex and Gender Information Value Date Recorded Sex Assigned at Not on file Legal Sex Male 9:49 AM KILN SETTER Gender Identity Not on file Sexual Orientation Not on file Plan of Treatment Health Maintenance Due Date Last Done Comments COLOGUARD (AGES 45-75) - COL ON CA SCREENING 1978 COLON MONITORING 1978 COLONOSCOPY - COLON CA SCREENING 1978 CT COLONOGRAPHY - COLON CA SCREENING 1978 Colorectal Cancer Screening 1978 FIT - COLON CA SCREENING 1978 FLEX SIG - COLON CA SCREENING 1978 HIV SCREENING 1993 HEPATITIS C SCREENING 03/17/1996 DTAP/TDAP/TD VACCINES (1 - Tdap) 1997 HEPATITIS B VACCINE (1 of 3 - 19+ 3-dose series) 1997 PNEUMOCOCCAL VACCINE (1 of 2 - PCV) 1997 COVID-19 VACCINE (1 - 2023-2 5 season) 2023 DEPRESSION SCREENING 04/18/2024 INFLUENZA VACCINE (Season Ended) 2024 ZOSTER VACCINE (1 of 2) 2028 HIB VACCINE Aged Out No longer eligi ble based on patient's age to complete this topic HPV VACCINE Aged Out No longer eligi ble based on patient's age to complete this topic MENINGOCOCCAL (Group B) VACC INE SHARED DECISION-MAKING Aged Out No longer eligibl e based on patient's age to complete this topic MENINGOCOCCAL GROUPS A/C/Y/W VACCINE Aged Out No longer eligible b ased on patient's age to complete this topic Insurance [facility] Care Teams Talent Analyst Relationship Specialty Start Date End Date Jm Lane MD [address] [place] [id number] PCP - General 03/12/19
--- OUTSIDE RECORDS SUMMARY | 2024-08-30 08:55 | XMS_ITS | Encounter Summary ---
Author Organization [facility] Address [address] [place] [address] Care Team Providers Care Fountain Supervisor Name Role Phone Jm Lane MD Primary Care Provider Tari Lane Primary Care Provider [phone] MD Primary Care Provider Encounter Details Date Type Department Care Team (Late st Contact Info) Description 09/23/2018 Abstract [facility] CONVERSION [address] [place] [address] , Generic ConversionMD Social History Tobacco Use Types Packs/Day Years Used Date Smoking Tobacco: Smoker, Current Status Unknown Smokeless Tobacco: Never Sex and Gender Information Value Date Recorded Sex Assigned at Male 05/21/2024 11:24 AM QC MANAGER Legal Sex Male 7:09 PM CDT Gender Identity Not on file Sexual Orientation Not on file documented as of this encounter Plan of Treatment Not on file documented as of this encounter Visit Diagnoses Not on filedocumented in this encounter Additional Health Concerns Infection Onset Date Last Indicated Resolved Time COVID-19 Rule Out 12/08/2020 12/08/2020 12/08/2020 7:17 PM CDT COVID-19 Rule Out 09/25/2021 09/25/2021 09/25/2021 7:16 PM CDT documented as of this encounter Care Teams Fountain Supervisor Relationship Specialty Start Date End Date Jm Lane MD [address] [place] [id number] PCP - General FAMILY PRACTICE 04/24/18 04/01/[address] FNP [address] [place] [address] PCP - General Nurse Practitioner Primary Care 04/02/21 11/29/[address] MD [address] [place] [address] PCP - General FAMILY PRACTICE 11/30/23 documented as of this encounter
--- OUTSIDE RECORDS SUMMARY | 2024-08-30 08:55 | XMS_ITS | Encounter Summary ---
Author Organization [facility] Address [address] [place] [address] Care Team Providers Care Marine Machinist Name Role Phone Jm Lane MD Primary Care Provider Tari Lane Primary Care Provider [phone] MD Primary Care Provider Encounter Details Date Type Department Care Team (Late st Contact Info) Description 04/28/2020 Telephone [facility] [address] [place] [phone] Cuco Lui MD [address] [address] Social History Tobacco Use Types Packs/Day Years Used Date Smoking Tobacco: Every Day Cigarettes 1 10 Cigars Smokeless Tobacco: Never Comments:Provider to address Alcohol Use Standard Drinks/Week Comments No 0 (1 standard drink = 0.6 oz pur e alcohol) AUDIT-C Answer Date Recorded Frequency of Alcohol Consumption Never 12/04/2018 Average Number of Drinks Not on file 019 Frequency of Binge Drinking Not on file 11/16 PHQ-2 Answer Date Recorded PHQ-2 Score 0 04/28/2020 Sex and Gender Information Value Date Recorded Sex Assigned at Male 05/21/2024 11:24 AM LAYER OUT PLATE GLASS Legal Sex Male 7:09 PM CDT Gender Identity Not on file Sexual Orientation Not on file COVID-19 Exposure Response Date Recorded In the last month, have you been in contact with someone who was confirmed or suspected to have Coronavirus / COVID-19? No / Unsure 04/28/2020 2:26 PM LAYER OUT PLATE GLASS documented as of this encounter Plan of Treatment Not on file documented as of this encounter Visit Diagnoses Diagnosis Seizure ([facility]) Other convulsions Partial symptomatic epilepsy with complex partial seizures, intractable, without status epilepticus ([facility]) documented in this encounter Additional Health Concerns Infection Onset Date Last Indicated Resolved Time COVID-19 Rule Out 12/08/2020 12/08/2020 12/08/2020 7:17 PM CDT COVID-19 Rule Out 09/25/2021 09/25/2021 09/25/2021 7:16 PM CDT documented as of this encounter Care Teams Marine Machinist Relationship Specialty Start Date End Date Jm Lane MD [address] [place] [phone] PCP - General FAMILY PRACTICE 04/24/18 04/01/[address] FNP [address] [place] [address] PCP - General Nurse Practitioner Primary Care 04/02/21 11/29/[address] MD [address] [place] [phone] PCP - General FAMILY PRACTICE 11/30/23 documented as of this encounter
--- OUTSIDE RECORDS SUMMARY | 2024-08-30 08:55 | XMS_ITS | Clinical Summary ---
Author Organization [facility] Address [address] [place] [address] Care Team Providers Care Provider Relations Specialist Name Role Phone Jm Lane MD Primary Care Provider [phone] Allergies No known active allergies Medications aspirin 81 MG chewable tablet Chew 1 tablet (81 mg total) by mouth daily. 3 Active famotidine 40 MG tablet Take 1 tablet (40 mg total) by mouth daily. 0 Active traZODone 50 MG tablet Take 1 tablet (50 mg total) by mouth nightly as needed. 1 Active sertraline 50 MG tablet Take 1 tablet (50 mg total) by mouth daily. 1 Active marijuana edibles 1 Active gabapentin 400 MG capsuleIndicatio ns:Seizure (CMS/HCC HHS/HCC),Partial symptomatic epilepsy with complex partial seizures, intractable, without status epilepticus (CMS/HCC HHS/HCC) TAKE 1 CAPSULE BY MOUTH 3 TIMES A DAY 180 capsule 6 2 Active LAMOTRIGINE 100 MG tabletIndication s:Seizure (CMS/HCC HHS/HCC),Partial symptomatic epilepsy with complex partial seizures, intractable, without status epilepticus (CMS/HCC HHS/HCC) TAKE 1 TABLET BY MOUTH TWICE A DAY 180 tablet 3 2 Active lacosamide (VIMPAT) 100 MG TabIndications:L ocalization-rela shadi focal epilepsy with complex partial seizures (CMS/HCC HHS/HCC) Take 1 tablet (100 mg total) by mouth 2 (two) times daily. 180 tablet 1 2 Active lithium 300 MG capsule Take 1 capsule (300 mg total) by mouth 3 (three) times a day. 2 Active atorvastatin (LIPITOR) 40 MG tablet Take 1 tablet (40 mg total) by mouth nightly at bedtime. 2 Active cyclobenzaprine (FLEXERIL) 10 MG tablet Take 1 tablet (10 mg total) by mouth every 8 (eight) hours as needed. 2 Active levothyroxine (SYNTHROID) 100 MCG tablet Take 1 tablet (100 mcg total) by mouth daily. Active methylPREDNISolo SPENSER griggs, (MEDROL) 4 MG tabletIndication s:Nontraumatic incomplete tear of right rotator cuff,Tear of right glenoid labrum, initial encounter,Biceps rupture, proximal, right, sequela Follow package directions 1 each 5 Active Active Problems Problem Noted Date Diagnosed Date Biceps rupture, proximal, right, sequela 025 Nontraumatic incomplete tear of right rotator cu ff 07/23/2024 Impingement syndrome of right shoulder 1 Osteoarthritis of right AC (acromioclavicular) j oint 11/28/2020 Tear of right glenoid labrum, initial encounter 11/05/2020 Other closed nondisplaced fr acture of tuberosity of left calcaneus with routine healing, subsequent encounter 09/16/2020 Neoplasm of uncertain behavior of skin 9 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 Chronic right shoulder pain 10/03/2018 Right tennis elbow 10/03/2018 Cervical radiculopathy 10/03/2018 Refractory epilepsy ([facility]) 02/24/2018 Carpal tunnel syndrome 02/16/2018 Chronic migraine without aura 02/15/2018 Cognitive dysfunction 02/15/2018 Complex partial epilepsy ([facility]) 02/15 Superior glenoid labrum lesion of shoulder 08/24 Resolved Problems Problem Noted Date Diagnosed Date Resolved Date Follow-up examination after orthopedic surgery 01/22/2021 05/04/2021 Encounters Date Type Department Care Team Description 08/13/2024 Telephone [facility] [address] [id number] Judith Trinh FNP-BC Referral (MRI / Arthrogram denied) 07/23/2024 9:00 AM CDT Office Visit [facility] [address] [facility] [address] [place] [address] Judith Trinh, PLASTERER SPOT- New Patient; Shoulder Pain (RIGHT) 07/23/2024 Travel 07/20/2024 Telephone [facility] [address] [facility] [address] [place] [address] Leidy Perez PA Referral 07/18/2024 9:46 AM CDT - 07/18/2024 11:59 PM CDT Hospital Encounter [facility] [address] [place] [address] Fannie Cehn PA Discharge Disposition: Home or Self Care (Routine Discharge) 07/18/2024 Orders Only [facility] [address] [place] [address] Pam Luna, 07/18/2024 Travel 06/04/2024 8:43 AM FIELD ASSEMBLY SUPERVISOR - 06/04/2024 11:59 PM FIELD ASSEMBLY SUPERVISOR Hospital Encounter [facility] [address] [place] [address] Pam Luna, DO Discharge Disposition: Home or Self Care (Routine Discharge) 06/04/2024 Orders Only [facility] [address] [place] [address] Pam Luna, 06/04/2024 Travel from Last 3 Months Family History Medical History Relation Comments Emphysema Father Heart Disease Father Kidney Disease Father No Known Problems Maternal Grandfather No Known Problems Maternal Grandmother Emphysema Mother Heart Disease Mother No Known Problems Paternal Grandfather Cancer Paternal Grandmother Relation Status Comments Father Maternal Grandfather Maternal Grandmother Mother Alive Paternal Grandfather Paternal Grandmother Social History Tobacco Use Types Packs/Day Years Used Date Smoking Tobacco: Every Day Cigars Smokeless Tobacco: Never Tobacco Cessation:Ready to Q uit: Not Asked; Counseling Given: Not Answered Comments:Provider to address one cigar a day [...] 3, please move on to questions 3-9 0 02/19/2022 Sex and Gender Information Value Date Recorded Sex Assigned at Male 05/21/2024 11:24 AM FIELD ASSEMBLY SUPERVISOR Legal Sex Male 7:09 PM CDT Gender Identity Not on file Sexual Orientation Not on file Last Filed Vital Signs Vital Sign Reading Time Taken Comments Blood Pressure 104/62 02/19/2022 1:17 PM CDT Pulse 78 02/19/2022 1:17 PM CDT Temperature 36.1 C (96.9 F) 12/11/2020 10:00 AM CDT Respiratory Rate 18 12/11/2020 8:55 AM CDT Oxygen Saturation 98% 02/19/2022 1:17 PM CDT Inhaled Oxygen Concentration - - Weight 68 kg (150 lb) 07/23/2024 9:03 AM CDT Height 172.7 cm (5' 8 ) 07/23/2024 9:03 AM CDT Body Mass Index 22.81 07/23/2024 9:03 AM CDT Plan of Treatment Health Maintenance Due Date Last Done Comments Colorectal Cancer Screening Colonoscopy (10 Years) 1978 Annual Physical 1981 Hepatitis C 1996 DTaP, Tdap and Td Vaccines ( 1 - Tdap) 1997 Hepatitis B Vaccines (1 of 3 - 19+ 3-dose series) 1997 Pneumococcal Vaccine: Pediat rics (0 to 5 Years) and At-Risk Patients (6 to 49 Years) (1 of 2 - PCV) 1997 COVID-19 Vaccine (2023-2 5 season) 2023 Meningococcal B Vaccine Aged Out No l onger eligible based on patient's age to complete this topic Meningococcal Vaccine Aged Out No ce kiet eligible based on patient's age to complete this topic RSV Immunizations Under 20 Months Aged Out No longer eligible based on patient's age to complete this topic Medical Devices Implanted Type Area Bee Worker Device Identifier Shelf Expiration Date Model / Serial / Lot Suture Dolores, [employer] Tenodesis, Biocomposite 7x19.1mm - [id number] Implanted:Qty: 1 on 12/11/2020 by Ulises Chiang MD at [facility] Dolores Right: Shoulder [employer] [id number] 07/16/2024 [id number] [facility] / / [id number] Procedures Procedure Name Priority Date/Time Associated Diagnosis Comments XR SHOULDER RT 3V Routine 07/18/2024 10: 17 AM CDT Right shoulder pain TSH W/REFLEX Routine 07/18/2024 10:16 AM CDT High risk medication use COMPREHENSIVE METABOLIC PANEL Routine 07/18/2024 10:16 AM CDT High risk medication use LITHIUM Routine 06/04/2024 8:53 AM FIELD ASSEMBLY SUPERVISOR High risk medication use from Last 3 Months Results * XR SHOULDER RT 3V (07/18/2024 10:17 AM CDT) Anatomical Region Laterality Modality Shoulder Radiographic Brittni ging 07/18/2024 10:4 2 AM CDT Impressions 07/18/2024 10:42 AM CDT IMPRESSION: No acute findings. Ordered By: FANNIE CHEN Interpreted By: Colby Rooney MD, 07/18/2024 10:42 AM Narrative 07/18/2024 10:42 AM CDT [place] [address] [place] [address] Examination: Right shoulder. Exam time: 0947 hours. Clinical history: Pain. Prior surgery. Comparison: 01/22/2021. Technique: Three views. Findings: No fracture, dislocation or other acute bony abnormality is identified. Changes related to acromioplasty and biceps tenodesis again evident. No other significant bone or joint abnormality is noted. The soft tissues are unremarkable. Procedure Note Colby Rooney MD - 07/18/[address] [place] [id number] Examination: Right shoulder. Exam time: 0947 hours. Clinical history: Pain. Prior surgery. Comparison: 01/22/2021. Technique: Three views. Findings: No fracture, dislocation or other acute bony abnormality isidentified. Changes related to acromioplasty and biceps tenodesis againevident. No other significant bone or joint abnormality is noted. The softtissues are unremarkable. IMPRESSION: No acute findings. Ordered By: FANNIE CHEN Interpreted By: Colby Rooney MD, 07/18/2024 10:42 AM Fannie Chen PA GENERAL IMAGING Final Resu lt * TSH W/REFLEX (07/18/2024 10:16 AM CDT) TSH 2.172 0.358 - 3.740 uIU/ML 07/18/2024 11:00 AM CDT [facility] Comment: FREE T4 NOT INDICATED ASSAY PERFORMED BY CHEMILUMINESCENT IMMUNOASSAY METHODOLOGY USING SIEMENS DIMENSION REAGENT. PATIENT RESULTS DETERMINED BY ASSAYS FROM DIFFERENT MANUFACTURERS AND/OR BY DIFFERENT METHODS MAY NOT BE COMPARABLE. 07/18/2024 10:1 6 AM CDT Provider Non-Staff LABORATORY Final Result [facility] [place] [address], * (ABNORMAL) COMPREHENSIVE METABOLIC PANEL (07/18/2024 10:16 AM CDT) SODIUM S/P/B 140 136 - 145 MMOL/L 07/18/2024 10:41 AM CDT [facility] POTASSIUM S/P/B 4.4 3.5 - 5.1 MMOL/L 07/18/2024 10:41 AM CDT [facility] CHLORIDE S/P/B 103 98 - 107 MMOL/L 07/18/2024 10:41 AM CDT [facility] CO2 29.9 21.0 - 32.0 MMOL/L 07/18/2024 10:41 AM [facility] GLUCOSE 91 70 - 99 MG/DL 07/18/2024 10:41 AM [facility] Comment: FASTING GLUCOSE 100 TO 125 MG/DL IS CONSISTENT WITH IMPAIRED FASTING GLUCOSE. FASTING GLUCOSE >125 MG/DL IS CONSISTENT WITH DIABETES. RANDOM GLUCOSE >200 MG/DL WITH HYPERGLYCEMIC SYMPTOMS IS CONSISTENT WITH DIABETES. PER ADA GUIDELINES BUN 12 6 - 24 MG/DL 07/18/2024 10:41 AM [facility] CREATININE S/P/B 1.22 0.70 - 1.30 MG/DL 07/18/2024 10:41 AM [facility] CALCIUM S/P/B 9.3 8.4 - 10.5 MG/DL 07/18/2024 10:41 AM [facility] BILIRUBIN TOTAL S/P/B 0.4 0.2 - 1.0 MG/DL 07/18/2024 10:41 AM [facility] Comment: THIS ASSAY IS NOT RECOMMENDED FOR PATIENTS UNDERGOING TREATMENT WITH ELTROMBOPAG DUE TO THE POTENTIAL FOR FALSELY ELEVATED RESULTS. ALKALINE PHOSPHATASE S/P/B 105 45 - 115 U/L 07/18/2024 10:41 AM [facility] AST 28 15 - 37 U/L 07/18/2024 10:41 AM [facility] ALT 31 16 - 63 U/L 07/18/2024 10:41 AM [facility] TOTAL PROTEIN S/P/B 7.1 6.4 - 8.2 G/DL 07/18/2024 10:41 AM [facility] ALBUMIN S/P/B 4.1 3.4 - 5.0 G/DL 07/18/2024 10:41 AM [facility] ANION GAP 7.1 5.0 - 15.0 MMOL/L 07/18/2024 10:41 AM [facility] OSMOLALITY (CALC) 289 MOSM/KG 025 10:41 AM [facility] Comment:REFERENCE RANGE NOT ESTABLISHED GFR ESTIMATE 74(L) >89 ML/MIN/1. 73 M2 07/18/2024 10:41 AM CDT [facility] GFR NOTES GFR REFERENCE S: 07/18/2024 10:41 AM CDT [facility] Comment: THE ESTIMATED GFR IS CALCULATED USING THE 2020 CKD-EPI EQUATION. THE FOLLOWING CATEGORIES FOR GRADING RENAL FUNCTION ARE RECOMMENDED BY THE INTERNATIONAL SOCIETY OF NEPHROLOGY (KDIGO 2012 CLINICAL PRACTICE GUIDELINE). G1,NORMAL OR HIGH: >89 ml/min/1.73 m2 G2,MILDLY DECREASED: 60-89 ml/min/1.73 m2 G3A,MILDLY TO MODERATELY DECREASED: 45-59 ml/min/1.73 m2 G3B,MODERATELY TO SEVERELY DECREASED: 30-44 ml/min/1.73 m2 G4,SEVERELY DECREASED: 15-29 ml/min/1.73 m2 G5,KIDNEY FAILURE: <15 ml/min/1.73 m2 07/18/2024 10:1 6 AM CDT us Provider Non-Staff LABORATORY Final Result Performing Organization Address City/[facility]/ZIP Co de Phone Number [facility] [address] [place] [address], * (ABNORMAL) LITHIUM (06/04/2024 8:53 AM FIELD ASSEMBLY SUPERVISOR) LITHIUM 0.2(L) 0.6 - 1.2 MMOL/L 06/04/2024 10:49 AM FIELD ASSEMBLY SUPERVISOR [facility] 06/04/2024 8:53 AM FIELD ASSEMBLY SUPERVISOR us Provider Non-Staff LABORATORY Final Result Performing Organization Address [facility] Co de Phone Number [facility] [address] [place] [address], from Last 3 Months Insurance [employer] Care Teams Provider Relations Specialist Relationship Specialty Start Date End Date Jm Lane MD [address] [address] PCP - General FAMILY PRACTICE 11/30/23
[2024-08-30 09:00] VITALS: BP 131/86; PULSE 91; RESP 16; TEMP 37.2; O2SAT 95
--- NOTE | 2024-08-30 09:06 | ED.SKABFB ---
HPI - Skin/Abscess/Foreign Bdy General Chief complaint: Skin/Abscess/Foreign Body Stated complaint: lac to finger Time Seen by Provider: 08/30/24 09:04 Source: patient and family Mode of arrival: ambulatory Limitations: no limitations History of Present Illness HPI narrative: this is a 44-year-old male with no significant past medical history presents with a laceration to the lateral aspect of his left index finger that occurred approximately an hour ago using an . No other injuries no numbness or tingling. knife causing a well-approximated 2.5cm laceration Onset (ago): hour(s) Tetanus up to date: yes Related Data Home Medications Medication Instructions Recorded Confirmed Last Taken Type amitriptyline 25 mg tablet 25 mg PO HS 09/27/19 09/27/19 Unknown History divalproex 500 mg tablet,extended 2,000 mg PO BID 09/27/19 09/27/19 Unknown History release 24 hr gabapentin 400 mg capsule 400 mg PO TID 09/27/19 09/27/19 Unknown History lacosamide 100 mg tablet (Vimpat) 100 mg PO BID 09/27/19 09/27/19 Unknown History lamotrigine 100 mg tablet 100 mg PO BID 09/27/19 09/27/19 Unknown History meloxicam 7.5 mg tablet 7.5 mg PO DAILY 09/27/19 09/27/19 Unknown History pravastatin 80 mg tablet 80 mg PO DAILY 09/27/19 09/27/19 Unknown History Allergies Allergy/AdvReac Type Severity Reaction Status Date / Time No Known Allergies Allergy Verified 08/30/24 09:06 Review of Systems Review of Systems: All systems reviewed & are unremarkable except as noted in HPI and below PMFSH Past Medical History Medical History (Updated 08/30/24 @ 09:10 by Gerson Mueller MD) Seizure disorder Hypercholesterolemia Exam Const: General: healthy appearing and no acute distress Nutritional Appearance: well nourished Orientation/consciousness: patient oriented x3 Limitations: no limitations Resp: Effort & Inspection: normal respiratory effort Auscultation: clear to auscultation bilaterally Cardio: Rate: regular rate Rhythm: regular rhythm GI: GI Palp: Yes Soft to palpation : General: Yes bladder normal to palpation Skin: Other: Laceration 2.5cm in length well approximated non gaping lateral aspect of his left index finger Course Course Emergency Course: Dermabond placed and has a displaced on the index finger patient tolerated procedure well patient is up-to-date with his tetanus. Vital Signs Vital signs: Vital Signs Temperature 37.2 C 08/30/24 09:00 Pulse Rate 91 08/30/24 09:00 Respiratory Rate 16 08/30/24 09:00 Blood Pressure 131/86 08/30/24 09:00 Pulse Oximetry 95 08/30/24 09:00 Oxygen Delivery Room Air 08/30/24 09:00 Temperature 37.1 C 08/30/24 09:26 Pulse Rate 82 08/30/24 09:26 Respiratory Rate 16 08/30/24 09:26 Blood Pressure 131/86 08/30/24 09:26 Pulse Oximetry 95 08/30/24 09:26 Oxygen Delivery Room Air 08/30/24 09:00 Procedures Laceration Laceration 1: Date: 08/30/24 Time: 09:09 Site: hand Side (If applicable): left Size (cm): 2.5 Description: linear Pre-repair: wound explored and irrigated ====== Skin Level ====== Skin layer closed with: dermabond ====== Subcutaneous Layer ====== ====== Muscle Layer ====== ====== Tendon Layer ====== Critical Care Time Critical Care Time Critical Care Time: No Discharge Plan Discharge Clinical Impression: Laceration Patient Disposition: Home Condition: Stable Instructions: Antibiotic Form, Laceration (ED) Additional Instructions: advised to follow-up primary care physician if symptoms persist or worsen. She Patient Language: Canadian Prescriptions: No Action gabapentin 400 mg capsule 400 mg PO TID meloxicam 7.5 mg tablet 7.5 mg PO DAILY pravastatin 80 mg tablet 80 mg PO DAILY amitriptyline 25 mg tablet 25 mg PO HS divalproex 500 mg tablet extended release 24 hr 2,000 mg PO BID lamotrigine 100 mg tablet 100 mg PO BID Vimpat 100 mg tablet 100 mg PO BID oseltamivir [Tamiflu] 75 mg capsule 75 mg PO Q12H 5 Days Qty: 10 0RF naproxen 500 mg tablet 500 mg PO BID 10 Days Qty: 20 0RF ciprofloxacin HCl 500 mg tablet 500 mg PO Q12H 10 Days Qty: 20 0RF Follow-up/Referrals: UNKNOWN,DOCTOR [Non-Staff] - Time of Disposition: 09:11
[2024-08-30 09:26] VITALS: BP 131/86; PULSE 82; RESP 16; TEMP 37.1; O2SAT 95
--- OUTSIDE RECORDS SUMMARY | 2024-08-30 09:28 | XMS_ITS | Clinical Summary ---
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[facility]) 02/24/2018 Carpal tunnel syndrome 02/16/2018 Chronic migraine without aura 02/15/2018 Cognitive dysfunction 02/15/2018 Complex partial epilepsy ([facility]) 02/15 Superior glenoid labrum lesion of shoulder 08/24 Resolved Problems Problem Noted Date Diagnosed Date Resolved Date Follow-up examination after orthopedic surgery 01/22/2021 05/04/2021 Encounters Date Type Department Care Team Description 08/13/2024 Telephone [facility] [address] [id number] Judith Trinh FNP-BC Referral (MRI / Arthrogram denied) 07/23/2024 9:00 AM CDT Office Visit [facility] [address] [facility] [address] [place] [address] Judith Trinh, WHITE METAL CASTER- New Patient; Shoulder Pain (RIGHT) 07/23/2024 Travel 07/20/2024 Telephone [facility] [address] [facility] [address] [place] [address] Leidy Perez PA Referral 07/18/2024 9:46 AM CDT - 07/18/2024 11:59 PM CDT Hospital Encounter [facility] [address] [place] [address] Fannie Chen PA Discharge Disposition: Home or Self Care (Routine Discharge) 07/18/2024 Orders Only [facility] [address] [place] [address] Pam Luna, 07/18/2024 Travel 06/04/2024 8:43 AM TIMING INSPECTOR - 06/04/2024 11:59 PM TIMING INSPECTOR Hospital Encounter [facility] [address] [place] [address] Pam Luna, DO Discharge Disposition: Home or Self Care (Routine Discharge) 06/04/2024 Orders Only [facility] [address] [place] [address] Pam Luna, 06/04/2024 Travel from Last 3 [...] Sex Assigned at Male 05/21/2024 11:24 AM TIMING INSPECTOR Legal Sex Male 7:09 PM CDT Gender [...] this topic Medical Devices Implanted Type Area Engine Assembly Supervisor Device Identifier Shelf Expiration Date Model / Serial / Lot Suture Sterling, Swivel[employer] Tenodesis, Biocomposite 7x19.1mm - [id number] Implanted:Qty: 1 on 12/11/2020 by Ulises Chiang MD at [facility] Sterling Right: Shoulder [employer] [id number] 07/16/2024 [id number] [facility] / / [id number] Procedures Procedure Name Priority Date/Time Associated Diagnosis Comments XR SHOULDER RT 3V Routine 07/18/2024 10: 17 AM CDT Right shoulder pain TSH W/REFLEX Routine 07/18/2024 10:16 AM CDT High risk medication use COMPREHENSIVE METABOLIC PANEL Routine 07/18/2024 10:16 AM CDT High risk medication use LITHIUM Routine 06/04/2024 8:53 AM TIMING INSPECTOR High risk medication use from Last 3 Months Results * XR SHOULDER RT 3V (07/18/2024 10:17 AM CDT) Anatomical Region Laterality Modality Shoulder Radiographic Brittni ging 07/18/2024 10:4 2 AM CDT Impressions 07/18/2024 10:42 AM CDT IMPRESSION: No acute findings. Ordered By: FANNIE CHEN Interpreted By: Colby Rooney MD, 07/18/2024 10:42 AM Narrative 07/18/2024 10:42 AM CDT [place] [address] [place] [address] Examination: Right shoulder. Exam time: 0947 hours. Clinical history: Pain. Prior surgery. Comparison: 01/22/2021. Technique: Three views. Findings: No fracture, dislocation or other acute bony abnormality is identified. Changes related to acromioplasty and biceps tenodesis again evident. No other significant bone or joint abnormality is noted. The soft tissues are unremarkable. Procedure Note Colby Rooney MD - 07/18/2024 [address] [place] [id number] Examination: Right shoulder. Exam time: 0947 hours. [...] - 3.740 uIU/ML 07/18/2024 11:00 AM CDT [facility] Comment: FREE T4 NOT INDICATED ASSAY PERFORMED BY CHEMILUMINESCENT IMMUNOASSAY METHODOLOGY USING SIEMENS DIMENSION REAGENT. PATIENT RESULTS DETERMINED BY ASSAYS FROM DIFFERENT MANUFACTURERS AND/OR BY DIFFERENT METHODS MAY NOT BE COMPARABLE. 07/18/2024 10:1 6 AM CDT Provider Non-Staff LABORATORY Final Result [facility] [place] [place] [address], * (ABNORMAL) COMPREHENSIVE METABOLIC PANEL (07/18/2024 10:16 AM CDT) SODIUM S/P/B 140 136 - 145 MMOL/L 07/18/2024 10:41 AM CDT [facility] POTASSIUM S/P/B 4.4 3.5 - 5.1 MMOL/L 07/18/2024 10:41 AM CDT [facility] CHLORIDE S/P/B 103 98 - 107 MMOL/L 07/18/2024 10:41 AM CDT [facility] CO2 29.9 21.0 - 32.0 MMOL/L 07/18/2024 10:41 AM [facility] GLUCOSE 91 70 - 99 MG/DL 07/18/2024 10:41 AM [facility] Comment: FASTING GLUCOSE 100 TO 125 MG/DL IS CONSISTENT WITH IMPAIRED FASTING GLUCOSE. FASTING GLUCOSE >125 MG/DL IS CONSISTENT WITH DIABETES. RANDOM GLUCOSE >200 MG/DL WITH HYPERGLYCEMIC SYMPTOMS IS CONSISTENT WITH DIABETES. PER ADA GUIDELINES BUN 12 6 - 24 MG/DL 07/18/2024 10:41 AM [facility] CREATININE S/P/B 1.22 0.70 - 1.30 MG/DL 07/18/2024 10:41 AM [facility] CALCIUM S/P/B 9.3 8.4 - 10.5 MG/DL 07/18/2024 10:41 AM [facility] BILIRUBIN TOTAL S/P/B 0.4 0.2 - 1.0 MG/DL 07/18/2024 10:41 AM [facility] Comment: THIS ASSAY IS NOT RECOMMENDED FOR PATIENTS UNDERGOING TREATMENT WITH ELTROMBOPAG DUE TO THE POTENTIAL FOR FALSELY ELEVATED RESULTS. ALKALINE PHOSPHATASE S/P/B 105 45 - 115 U/L 07/18/2024 10:41 AM [facility] AST 28 15 - 37 U/L 07/18/2024 10:41 AM [facility] ALT 31 16 - 63 U/L 07/18/2024 10:41 AM [facility] TOTAL PROTEIN S/P/B 7.1 6.4 - 8.2 G/DL 07/18/2024 10:41 AM [facility] ALBUMIN S/P/B 4.1 3.4 - 5.0 G/DL 07/18/2024 10:41 AM [facility] ANION GAP 7.1 5.0 - 15.0 MMOL/L 07/18/2024 10:41 AM [facility] OSMOLALITY (CALC) 289 MOSM/KG 025 10:41 AM [facility] Comment:REFERENCE RANGE NOT ESTABLISHED GFR ESTIMATE 74(L) >89 ML/MIN/1. 73 M2 07/18/2024 10:41 AM CDT [facility] GFR NOTES GFR REFERENCE S: 07/18/2024 10:41 AM CDT [facility] Comment: THE ESTIMATED GFR IS [...] Non-Staff LABORATORY Final Result Performing Organization Address City/[facility]/ZIP Co de Phone Number [facility] [address] [place] [address], * (ABNORMAL) LITHIUM (06/04/2024 8:53 AM TIMING INSPECTOR) LITHIUM 0.2(L) 0.6 - 1.2 MMOL/L 06/04/2024 10:49 AM TIMING INSPECTOR [facility] 06/04/2024 8:53 AM TIMING INSPECTOR us Provider Non-Staff LABORATORY Final Result Performing Organization Address [facility] Co de Phone Number [facility] [address] [place] [address], from Last 3 Months Insurance [employer] Care Teams Clinical Informatics Strategist Relationship Specialty Start Date End Date Jm Lane MD [address] [place] [address] PCP - General FAMILY PRACTICE 11/30/23
--- OUTSIDE RECORDS SUMMARY | 2024-08-30 09:28 | XMS_ITS | Encounter Summary ---
Author Organization [facility] Address [address] [place] [address] Care Team Providers Care Building Mover Name Role Phone Jm Lane MD Primary Care Provider [phone] Primary Care Provider [phone] MD Primary Care Provider Encounter Details Date Type Department Care Team (Late st Contact Info) Description 10/27/[address] [facility] [address] [place] [phone] Cuco Lui MD [address] [address] Social History Tobacco Use Types [...] Sex Assigned at Male 05/21/2024 11:24 AM FINGERNAIL FORMER Legal Sex Male 7:09 PM CDT Gender [...] documented as of this encounter Care Teams Building Mover Relationship Specialty Start Date End Date Jm Lane MD [address] [place] [address] PCP - General FAMILY PRACTICE 04/24/18 04/01/[address] FNP [address] [place] [address] PCP - General Nurse Practitioner Primary Care 04/02/21 11/29/[address] MD [address] [place] [address] PCP - General FAMILY PRACTICE 11/30/23 documented as of this encounter
--- OUTSIDE RECORDS SUMMARY | 2024-08-30 09:28 | XMS_ITS | Clinical Summary ---
Author Organization [facility] Address [address] [place] [address] Care Team Providers Care Assistant Professor Of Biochemistry Name Role Phone Jm Lane MD Primary Care Provider [phone] Source Comments [facility],non-owned Affiliates and Associated Physician Practices is amultiple site organization consisting of ambulatory clinics and hospital sitesin [place], [place], [place] and [place]. This disclosure is being madepursuant to the Care Everywhere program and may not contain all information available regarding this patient. Last updated 18.[facility] Allergies No known active allergies Medications * [...] on file Legal Sex Male 9:49 AM SLOPE TENDER Gender Identity Not on file Sexual Orientation [...] patient's age to complete this topic Insurance [facility] Care Teams Assistant Professor Of Biochemistry Relationship Specialty Start Date End Date Jm Lane MD [address] [place] [phone] PCP - General 03/12/19
--- OUTSIDE RECORDS SUMMARY | 2024-08-30 09:28 | XMS_ITS | Encounter Summary ---
Author Organization [facility] Address [address] [place] [address] Care Team Providers Care Chip Tuner Name Role Phone Jm Lane MD Primary Care Provider Tari Lane Primary Care Provider [phone] MD Primary Care Provider Encounter Details Date Type Department Care Team (Late st Contact Info) Description 09/23/2018 Abstract [facility] [address] [place] [address] , Generic ConversionMD Social History Tobacco Use Types Packs/Day Years Used Date Smoking Tobacco: Smoker, Current Status Unknown Smokeless Tobacco: Never Sex and Gender Information Value Date Recorded Sex Assigned at Male 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
--- OUTSIDE RECORDS SUMMARY | 2024-08-30 09:28 | XMS_ITS | Encounter Summary ---
Author Organization [facility] Address [address] [place] [address] Care Team Providers Care Tank Car Repairer Name Role Phone Jm Lane MD Primary Care Provider Tari Lane Primary Care Provider [phone] MD Primary Care Provider Encounter Details Date Type Department Care Team (Late st Contact Info) Description 04/28/2020 Telephone [facility] 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 documented as of this encounter Plan of Treatment Not on file documented as of this encounter Visit Diagnoses Diagnosis Seizure ([facility]) Other convulsions Partial symptomatic epilepsy with complex partial seizures, intractable, without status epilepticus ([facility]) documented in this encounter Additional Health Concerns Infection Onset Date Last Indicated Resolved Time COVID-19 Rule Out 12/08/2020 12/08/2020 12/08/2020 7:17 PM CDT COVID-19 Rule Out 09/25/2021 09/25/2021 09/25/2021 7:16 PM CDT documented as of this encounter Care Teams Tank Car Repairer Relationship Specialty Start Date End Date Jm Lane MD [address] [place] [phone] PCP - General FAMILY PRACTICE 04/24/18 04/01/[address] FNP [address] [place] [address] PCP - General Nurse Practitioner Primary Care 04/02/21 11/29/[address] MD [address] [place] [address] PCP - General FAMILY PRACTICE 11/30/23 documented as of this encounter
== END 2024-08-30 09:26 | disposition home or self-care (01) ==
LOC: CHSED 09:25
PROVIDERS: Emergency Provider Emergency Medicine; PCP Family Medicine
DX: S61.211A Laceration without foreign body of left index finger without damage to nail, initial encounter (principal); W26.0XXA Contact with knife, initial encounter
CPT/HCPCS: 12001; 99282